=== PATIENT | female | born 1955 | race Caucasian/White ===

== ENCOUNTER → 2017-03-12 | Day surgery (SDC) | payer BC ==
[~2017-03-12] MED LIST: ADVAIR DISKU1 250/50 INH; ADVIL200 M3 PO; AVAPRO PO; CALTRATE 600+D PO; CENTRUM PERFOR1 EACH PO; COREG12.5 MG PO; CYMBALTA PO; ESOMEPRAZOLE MA40 MG PO; ESTROGEN PATCH; EXCEDRIN EXTRA1 EAC3; EXCEDRIN EXTRA1 TAB PO; FOLIC ACID1 MG PO; HYDROCODONE-APA1 T42 PO; HYDROCODONE/APA1 T16 PO; IRBESARTAN150 MG PO; LASIX PO; LIDODERM30 EA TOP; LIOTHYRONINE SO5 MC1 PO; MINIVELLE1 EAC1 TD; MYRBETRIQ25 MG PO; NEXIUM PO; NUCYNTA50 MG PO; POTASSIUM1 UDCAP.SA PO; PRISTIQ100 MG PO; PRISTIQ50 MG PO; PROGESTERONE100 MG PO; PROMETRIUM100 MG PO; PROVERA5 MG PO; SYNTHROID0.05 MG PO; TYLENOL #3 PO; VESICARE PO; ZOCOR10 MG PO; ZOCOR20 MG PO; ZOLPIDEM TARTRA10 M1 PO
--- NOTE | ~2017-03-12 | OR ---
Unit #: [id number] #: [id number] Patient: DRAKE ROBISON [id number] [address] [place], [place] [address] [id number] MR#: [id number] NAME: DRAKE ROBISON. ROOM: Date of Procedure: 03/12/2017 Admission Date: 03/12/2017 Surgeon: Placido Sauceda M.D. : 1955 Attending Physician: Placido Sauceda M.D. Primary Care Physician: Carine Pedroza M.D. OPERATIVE REPORT INDICATIONS FOR PROCEDURE Colonoscopy with biopsies and colonoscopy with snare polypectomy. INDICATIONS FOR PROCEDURE The patient with diarrhea, abnormal CT scan with thickening in the colon wall, undergoing colonoscopy for evaluation. MEDICATIONS Monitored anesthesia. POSTOPERATIVE FINDINGS 1. 5 mm polyp, transverse colon, snared and sent for histopathology. 2. No active colitis was seen. No masses were seen. PLAN Follow up on the pathology report. Repeat colonoscopy in 5 years. DESCRIPTION OF PROCEDURE The patient was explained of the procedure, risks, and benefits along with risks and benefits of anesthesia. She was brought to the endoscopy room. Propofol anesthesia was given. Rectal exam was done, which was normal. Colonoscope was lubricated, passed up the rectum, advanced under direct vision all the way to the cecum. Cecum was identified by ileocecal valve and appendiceal orifice. I then started to pull the scope out carefully looking. Polyp seen in transverse colon was snared and sent for histopathology. Random biopsies taken from otherwise normal appearing mucosa. I retroflexed the rectum, small hemorrhoids seen. Gently, the scope was pulled out. She tolerated it well. Dictated by... Gwendolyn Miramontes/jany TD: 03/12/2017 23:21 JOB #: [id number] Unit #: [id number]: [id number] Patient: DRAKE ROBISON OPERATIVE REPORT Page 1 of 1 X Placido Sauceda MD PROCEDURE OPERATIVE NOTE
== END | disposition home or self-care (01) ==
LOC: COPS 12:57
DX: D12.3 Benign neoplasm of transverse colon (principal); K64.9 Unspecified hemorrhoids; K21.9 Gastro-esophageal reflux disease without esophagitis; I42.9 Cardiomyopathy, unspecified; E03.9 Hypothyroidism, unspecified; J45.909 Unspecified asthma, uncomplicated; Z87.19 Personal history of other diseases of the digestive system; Z88.0 Allergy status to penicillin; Z88.1 Allergy status to other antibiotic agents; Z91.040 Latex allergy status; Z98.42 Cataract extraction status, left eye; Z98.41 Cataract extraction status, right eye; Z90.49 Acquired absence of other specified parts of digestive tract; Z98.890 Other specified postprocedural states
CPT/HCPCS: 88305